=== PATIENT | female | born 2000 | race Caucasian/White ===

== ENCOUNTER 2024-08-31 09:01 | Outpatient (AMB) | payer OTHER, SELFPAY ==
--- NOTE | 2024-08-31 09:14 | MHC.OFFWIV ---
Intake Vital Signs 08/31/24 09:18 Height 5 ft 4 in Weight 185 lb 6 oz BMI 31.8 BP 122/72 Blood Pressure Location Lt brachial Position Sitting Respiration 12 Pulse 82 Pulse Source Pulse Oximeter Pulse Oximetry (%) 98 Oxygen Delivery Method Room Air Intake Visit Reasons: Medication check Intake Note: Patient is here for control and patient is on her last pack now. Patient has Pcos Allergies No Known Allergies Allergy (Verified 08/31/24 09:29) Medication List - Last Reconciled 08/31/24 by Jen Salomon [facility] desogestrel-ethinyl estradiol 0.15-0.03 mg (Apri) 1 tab PO DAILY Do you need a note to return to daycare/school/sports/work: No HPI HPI Comments History of Present Illness Details History of Present Illness The patient is a 24-year-old female presenting with a need for control refill. She was previously managing her control needs through her primary care provider, but changes in her insurance status following her mother's job transition have led to administrative challenges. The patient is currently using Apri as her contraceptive method and has emphasized the necessity of maintaining this medication due to her diagnosis of Polycystic Ovary Syndrome (PCOS). She notes the importance of the control in managing symptoms associated with her PCOS and wishes to ensure there is no disruption in her medication supply. She also reports experiencing anxiety attacks, predominantly when driving. Her previous healthcare provider prescribed Lorazepam (Ativan) for this issue, which she has used sparingly, primarily during flights to manage fear of flying. The patient prefers to cope with anxiety without regular medication to avoid dependency and concerns about missing doses leading to disruptions. Her mother, a healthcare professional, is supportive, but the patient mentions experiencing anxiety attacks that make her feel detached, emilee to feeling high. She has expressed interest in an effective as-needed medication for situational anxiety without inducing significant sedation or altered sensorium. Physical Exam General: Cooperative, healthy appearing, comfortable, no acute distress and well developed Respiratory: Normal respiratory effort and able to speak in complete sentences. Clear to auscultation bilaterally Cardiovascular: Regular rate and rhythm. Normal S1 and S2 Neuro: Patient oriented x3 Psych Mood and affect appropriate Plan - For Polycystic Ovary Syndrome PCOS) and contraception management: A three-month prescription of Apri with two refills has been provided to ensure continuity of control. Efforts will be made to establish care with an EMERGENCY ROOM SPECIALIST at the [facility] group for comprehensive management of PCOS and routine women's health screenings. - For anxiety management: Hydroxyzine has been prescribed as an as-needed medication for anxiety episodes, particularly useful when the patient experiences anxiety while driving. The patient is advised to start with half a tablet to assess effectiveness and side effects. - For nicotine use via vaping: Although it presents risks, particularly with concurrent control usage, the patient is advised to reduce or eliminate nicotine vaping to mitigate thromboembolic risk associated with oral contraceptive use. - Follow-Up: The patient should follow up with an appointment scheduled with Dr. Champion, or inquire about an earlier opening to discuss ongoing care, especially regarding anxiety management. Additionally, the patient will receive a referral for EMERGENCY ROOM SPECIALIST services, and it's recommended that she utilize the patient portal for tracking appointments and health records. Patient was informed and verbally consented to the use of an ambient scribe for clinic note documentation during this visit. Physical Exam Vital Signs: Last Vital Signs Pulse 82 08/31/24 09:18 Resp 12 08/31/24 09:18 BP 122/72 08/31/24 09:18 Pulse Ox 98 08/31/24 09:18 Oxygen Delivery Method Room Air 08/31/24 09:18 BMI result Body Mass Index 31.8 Assessment & Plan Assessment & Plan (1) PCOS (polycystic ovarian syndrome): Code(s): E28.2 - Polycystic ovarian syndrome (2) EULALIO (generalized anxiety disorder): Code(s): F41.1 - Generalized anxiety disorder Plan . Orders: Referrals EMERGENCY ROOM SPECIALIST Referral E28.2 - Polycystic ovarian syndrome, Z12.4 - Encounter for screening for malignant neoplasm of cervix Medications: New desogestrel-ethinyl estradiol 0.15-0.03 mg (Apri) 1 tab PO DAILY 84 tabs 2RF hydroxyzine HCl TAKE 1/2 TO 1 TAB TID PRN ANXIETY 25 mg PO TID PRN 90 tabs 0RF ANXIETY Patient Instructions: Walk-In Care (Urgent Care): We Make it Easy Walk-in for urgent medical issues such as: ? Seasonal Allergies ? Insect Bites ? Cough ? Diarrhea ? Acute Asthma Attacks ? Back, Knee or Joint Pain ? Ear Infection ? Fever without a Rash ? Headaches ? Nausea ? [place] Eye, Rash or Skin Irritation ? Sore Throat ? Sports Physicals ? Vomiting Most insurances are accepted. Patients do not need to be part of the [facility] to seek care at the walk-in clinic. Locations [facility] [place] [address] [address] ? [phone] [facility] Walk-In Care in [place] provides services to ages 18 and over. Open Friday-Friday: 8 a.m. to 5 p.m. and Friday: 9 a.m. to 3 p.m.* *Hours may vary due to staffing availability. To confirm Walk-In Care hours in [place], please call [phone]. [address] [place] [address] ? [phone] [facility] Walk-In Care in [place] provides services to ages 12 and over. Open Friday-Friday: 8 a.m. to 5 p.m. Hours may vary due to staffing availability. To confirm Walk-In Care hours in [place], please call [phone]. LABORATORY SERVICES: [facility] ? Primary Location [address] [place] [address] Friday through Friday 6:00 AM ? 5:00 PM Friday 7:00 AM ? 11:00 AM* [phone] The [facility] is centrally located near the front entrance of the [facility] for easy outpatient access. Convenient parking is provided for outpatients. *Hours may vary due to staffing availability. To confirm Laboratory hours for any location, please call [phone]. Offsite Location For your convenience, we offer offsite laboratory draw stations at the following locations: [address] [place] [address] ? [facility] [address], [address] Friday through Friday 7:30 AM ? 1:00 PM* [phone] *Hours may vary due to staffing availability. To confirm Laboratory hours for any location, please call [phone]. [place] ? [address] Friday through Friday 6:00 AM ? 3:30 PM* Friday 6:30 AM ? 3 PM* [phone] *Hours may vary due to staffing availability. To confirm Laboratory hours for any location, please call [phone]. [facility] Friday through Friday 7:30 AM ? 4:00 PM* [phone] *Hours may vary due to staffing availability. To confirm Laboratory hours for any location, please call [phone]. [address] [facility] Friday through 9:00 AM ? 4:00 PM* *Hours may vary due to staffing availability. To confirm Laboratory hours for any location, please call [phone]. Appointments are not necessary. Walk-ins are welcome. Like all the departments throughout the [facility], our Lab undergoes frequent reviews to ensure the quality and accuracy of test results, and our staff takes special pride in its status as a nationally accredited facility. Patient Portal: ONE PATIENT. ONE RECORD. BETTER CARE. [facility] has a fully integrated, cutting-edge mobile electronic health information system that has revolutionized the way we care for our patients and manage our organization. This system improves communication and coordination enabling us to provide safe, higher-quality care, and an overall positive experience for staff and patients. Our first priority, as always, is to deliver the highest quality care possible. The system is running in the background supporting that priority. This portal is for all [facility] services and practices. If you are experiencing any technical difficulties with enrolling or logging into the Patient Portal please complete the [facility] Patient Portal Technical Support Form. [facility] now offers a new secure on-line interactive tool for patients to review their health information ? Patient Portal. This interactive web portal will enable patients and their families to take an active role in their care by providing easy, secure access to their health information via the internet. The Patient Portal provides patients with instant access to their health information, including laboratory results, medications, allergies, demographic information, visit history, and more. In addition to managing their own care, parents and health care proxies with authorized consent will appreciate the ability to access the records of those individuals for whom they provide care. Please note: if you wish to gain access (Proxy) to another patient?s portal, you will be required to come to the Medical Records Department in person at [facility]. Both the patient giving proxy access and the proxy will need to provide photo identification and complete the appropriate authorization. The Patient Portal also allows track their appointments online. The [facility] Patient Portal also saves patients time by allowing them to submit updates to their demographic and contact information prior to their visits. Portal email notifications will also alert patients to any new activity on their portal, such as test results and new appointments. In order to initially enroll in the [facility] Patient Portal, you will need to enter some required information including the following: ? your [facility] Medical Record number ? your personal home email address ? name ? date of Please note: In order to enroll in the [facility] Patient Portal, we need to have your email address on file in your electronic medical record. The email address needs to be specific for one person (yourself) in order for your Portal enrollment to be successful. You can update your email address in person with our Registration staff when you are registering for a hospital visit. Otherwise, you will need to come to the Health Information Management (Medical Records) Department at [facility]. We are open from Friday ? Friday from 7:30 a.m. ? 4:30 p.m. You will be required to present a photo id. Once you have successfully enrolled in the Patient Portal, you will receive a one-time user id and password for the Portal, sent to your email address. This will allow you to log into the Patient Portal within 99 hrs and reset your own logon id and password, and define personal security questions. Once your permanent login and password have been set, you can log into the [facility] Patient Portal at any time via the blue button above or from the Portal Logon button on any page of the [facility] website. [facility] encourage all of our patients to enroll in Patient Portal as it presents a valuable opportunity for patients and their families to actively participate in their care and stay healthy Welcome to [facility]. We look forward to working with you. Coding Level of Care Code Est Pt Level 4 (04804) Diagnoses PCOS (polycystic ovarian syndrome) E28.2 EULALIO (generalized anxiety disorder) F41.1
[2024-08-31 09:18] VITALS: BP 122/72; PULSE 82; RESP 12; O2SAT 98; BMI 31.8
== END 2024-08-31 09:37 | disposition home or self-care (01) ==
PROVIDERS: Visit Provider Nurse Practitioner Family
DX: E28.2 Polycystic ovarian syndrome (principal); F41.1 Generalized anxiety disorder

== ENCOUNTER → 2024-08-31 09:01 | Outpatient (BNVA) | payer OTHER, SELFPAY | DX: E28.2 Polycystic ovarian syndrome (principal); F41.1 Generalized anxiety disorder | CPT/HCPCS: 99212 ==

== ENCOUNTER 2024-09-20 09:59 | Outpatient (AMB) | payer OTHER, SELFPAY ==
--- NOTE | 2024-09-20 10:07 | A.OFFPC_ITS ---
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: Patient has dentist HPI 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 ?? Prior PCP:?Flower Humphrey Last office visit/CPE:? > 1 yr Acute issue(s):? 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 1. Little interest or pleasure in doing things: several days 2. Feeling down, depressed, or hopeless: not at all 3. Trouble falling or staying asleep, or sleeping too much: not at all 4. Feeling tired or having little energy: several days 5. Poor appetite or overeating: not at all 6. Feeling bad about yourself - or that you are a failure or have let yourself or your family down: not at all 7. Trouble concentrating on things, such as reading the newspaper or watching television: not at all 8. Moving or speaking so slowly that other people could have noticed. Or the opposite - being so fidgety or restless that you have been moving around a lot more than usual: not at all 9. Thoughts that you would be better off or of hurting yourself in some way: not at all Total score: 2 Depression Screening Interpretation: Negative Depression Screening Done: Yes 48151 - PHQ-9 Billing: Yes Source: Developed by Drs. Nolan Hutchins, Nancie Cox, Odilon Cornejo and colleagues, with an educational caitlin from [employer]. Thrive Questionnaire Date Thrive assessed: 09/20/24 I am a: Patient What is your living situation today?: I have a steady place to live Within the past 12 months, did the food you bought not last and you didn't have the money to get more?: Never true Within the past 12 months, did you worry whether your food would run out before you got money to buy more?: Never true Do you have trouble paying for medicines?: No Do you have trouble getting transportation to medical appointments?: No Do you have trouble paying your heating and electricity bill?: No Do you have trouble taking care of your child, family member or friend?: No Do you have trouble with day-to-day activities such as bathing, preparing meals, shopping, managing finances, etc.?: No Are you currently unemployed and looking for a job?: No Are you interested in more education?: No Please select the resources that you would like help with: None Currently or been in a relationship where the following occur: No concerns reported THRIVE Score: 0 AUDIT C Alcohol Use Questionnaire (AUDIT-C) 1. How often do you have a drink containing alcohol?: Monthly or less 2. How many drinks containing alcohol do you have on a typical day when you are drinking?: 1 or 2 3. How often do you have six or more drinks on one occasion?: Never Total Score: 1 EULALIO-7 AMB Questionnaire EULALIO-7 Date EULALIO - 7 assessed: 09/20/24 Feeling nervous, anxious, or on edge: 2 = More than half the days Not being able to stop or control worryin = Several days Worrying too much about different things: 1 = Several days Trouble relaxin = Several days Being so restless that it is hard to sit still: 0 = Not at all Becoming easily annoyed or irritable: 1 = Several days Feeling afraid as if something awful might happen: 2 = More than half the days Total EULALIO-7 score (0-4 normal; 5-9 mild; 10-14 moderate; 15-21 severe): 8 Source: Developed by Drs. Nolan Hutchins, Nancie Cox, Odilon Cornejo and colleagues, with an educational caitlin from [employer]. EULALIO-7 Assessment Billing EULALIO-7 Assessment Tool: EULALIO-7 Assessment 69348 Review of Systems Const Denies chills, Denies fatigue, Denies fever(s), Denies headache(s) and Denies weakness ENT Denies dizziness and Denies headache(s) Card Denies chest pain, Denies lightheadedness, Denies dyspnea and Denies other (Palpitations) Resp Denies cough, Denies dyspnea, Denies wheezing and Denies other ( shortness of breath) Musc Denies numbness and Denies tingling Neuro Denies dizziness, Denies headache(s), Denies numbness, Denies tingling, Denies paresthesias and Denies weakness Psych Reports anxiety and Denies depression Endo Denies fatigue Aller/Immun Denies wheezing Physical exam (Primary Care) Vital Signs: Last Vital Signs Temp 98.4 F 09/20/24 10:16 Pulse 84 09/20/24 10:16 Resp 14 09/20/24 10:16 BP 100/60 09/20/24 10:16 BMI result Body Mass Index 31.5 Tobacco/Smoking Status: Tobacco use Status Tobacco use date assessed 09/20/24 09/20/24 10:21 Patient Tobacco Use Status Never used Tobacco 09/20/24 10:21 e-Cigarette/Vaping Use Currently Using 09/20/24 10:21 PHQ-9: PHQ-9 Score PHQ-9: Total score 2 09/20/24 10:27 Depression Screening Interpretation: Negative Thrive Assessment: Date of Thrive Assessment Date Thrive assessed 09/20/24 09/20/24 10:21 Currently or been in a relationship where the following occur: No concerns reported Const General: no acute distress and well developed Nutritional Appearance: well nourished Orientation/consciousness: patient oriented x3 HENMT Head: Yes normocephalic and Yes atraumatic Eyes General: appearance normal, both eyes and all related structures Pupils: Equal, round and reactive pupils present EOM: EOMs intact bilaterally Resp Effort & Inspection: normal respiratory effort Auscultation: clear to auscultation bilaterally Cardio Rate: regular rate Rhythm: regular rhythm Heart sounds: S1 normal heart sound present, S2 normal heart sound present, no gallops, no murmurs and no rubs Neuro General: patient oriented x3 and gait normal Cranial nerves: Yes Equal, round and reactive pupils present Psych Affect: normal affect Coding Level of Care Code New Pt Level 3 (24367) Diagnoses EULALIO (generalized anxiety disorder) F41.1 PCOS (polycystic ovarian syndrome) E28.2 Laboratory exam ordered as part of routine general medical examination Z00.00 Additional Codes EULALIO-7 Assessment Billing - EULALIO-7 Assessment Tool: EULALIO-7 Assessment 49274 ([id number]) PHQ-9 - 79421 - PHQ-9 Billing: Yes ([id number]) Assessment & Plan Assessment & Plan (1) EULALIO (generalized anxiety disorder): Code(s): F41.1 - Generalized anxiety disorder Category: Medical Plan: We?discussed?1st?and?2nd?line?medications?for?anxiety Patient?has?tried?hydroxyzine?few?times?which?seem?to?help?slightly I?think?she?would?be?a?good?candidate?for?a?therapist?ask?nurse?navigator?to?judha e?a?referral We?also?discussed?first-line?medications?such?SSRI?medications. She?will?think?about?this. Also?encouraged?regular?exercise (2) PCOS (polycystic ovarian syndrome): Code(s): E28.2 - Polycystic ovarian syndrome Category: Medical Plan: Has?appointment?with?top distribution executive (3) Laboratory exam ordered as part of routine general medical examination: Code(s): Z00.00 - Encounter for general adult medical examination without abnormal findi ngs Category: Medical Plan: Check?labs Orders: Orders Complete Blood Count Auto Diff Today Z00.00 - Encounter for general adult medical examination without abnormal findings Lipid Panel Today Z00.00 - Encounter for general adult medical examination without abnormal findings Microalbumin, Random (w Creat) Today I10 - Essential (primary) hypertension UA and rflx microscopic Today Z00.00 - Encounter for general adult medical examination without abnormal findings Comprehensive [place]. Panel Fast Today Z00.00 - Encounter for general adult medical examination without abnormal findings TSH reflex Free T4 Today Z00.00 - Encounter for general adult medical exami [place] [facility] without abnormal findings Referrals Nurse Navigator Referral F41.1 - Generalized anxiety disorder
[2024-09-20 10:16] VITALS: BP 100/60; PULSE 84; RESP 14; TEMP 36.9; BMI 31.5
== END 2024-09-20 10:59 | disposition home or self-care (01) ==
PROVIDERS: Visit Provider Family Medicine
DX: F41.1 Generalized anxiety disorder (principal); E28.2 Polycystic ovarian syndrome; Z00.00 Encounter for general adult medical examination without abnormal findings

== ENCOUNTER → 2024-09-20 09:59 | Outpatient (BNVA) | payer OTHER, SELFPAY | PROVIDERS: Visit Provider Family Medicine | DX: Z00.00 Encounter for general adult medical examination without abnormal findings (principal); F41.1 Generalized anxiety disorder; E28.2 Polycystic ovarian syndrome | CPT/HCPCS: 96127; 99202 ==

== ENCOUNTER 2024-09-21 08:57 | Outpatient (REF) | payer OTHER, SELFPAY ==
[2024-09-21 11:25] LABS: MANUAL DIFF FLAG NO
[2024-09-21 11:31] LABS: Basophils Absolute Auto 0.1 X10*3/uL (0.0-0.2); Eosinophils Absolute Auto 0.2 X10*3/uL (0.0-0.4); Hematocrit 40.3 % (37.0-47.0); Hemoglobin 13.3 g/dl (12.0-16.0); Imm Gran Abs Auto 0.03 X10*3/uL (0.00-0.03); Imm Gran Pct Auto 0.3 % (0.0-0.4); Lymphocytes Absolute Auto 3.3 X10*3/uL (1.2-4.9); Lymphocytes Percent Auto 33.5 % (20-40); Mean Corpuscular Volume 81.9 fL (80.0-98.0); Mean Platelet Volume 10.5 fL (9.4-12.3); Monocytes Absolute Auto 0.4 X10*3/uL (0.1-1.2); Monocytes Percent Auto 4.5 % (2-11); Neutrophils Absolute Auto 5.7 x10*3/uL (2.0-8.3); Neutrophils Percent Auto 58.7 % (45-73); Platelet Count 354 X10*3/uL (160-400); Red Blood Count 4.92 X10*6/uL (4.20-5.50); Red Cell Distribution Width 13.5 % (11.0-16.0); White Blood Count 9.7 X10*3/uL (4.8-10.8)
[2024-09-21 12:18] LABS: Alanine Aminotransferase 17 U/L (0-31); Albumin Level 3.9 g/dL (3.5-5.0); Alkaline Phosphatase 51 U/L (39-117); Anion Gap 10 (12-20); Aspartate Amino Transferase 17 U/L (5-31); Bilirubin Total 0.3 mg/dL (0.0-1.0); Blood Urea Nitrogen 14 mg/dL (9-16); Calcium 9.2 mg/dL (8.4-10.2); Carbon Dioxide 22 mmol/L (22-29); Chloride 110 mmol/L (96-108); Cholesterol 190 mg/dL (<200); Estimated Glomerular Filt Rate > 60; Glucose Fasting 91 mg/dL (60-99); HDL Cholesterol 42 mg/dL (>40); LDL Cholesterol Calculated 118 mg/dL (<100); Potassium 4.4 mmol/L (3.3-5.1); Sodium 138 mmol/L (135-145); TSH reflex Free T4 1.93 uIU/mL (0.32-4.0); Total Protein 7.3 g/dL (6.5-8.0); Triglycerides 151 mg/dL (<150)
[2024-09-21 15:22] LABS: Appearance Urine Clear; Color Urine Yellow; Glucose Urine UA Negative (Negative); Leukocyte Esterase Urine Trace (Negative); Nitrite Urine Negative (Negative); PH 5.5 (5.0-9.0); UMIC TRIGGER UA YES; Urine Blood Negative (Negative); Urine Ketones Negative (Negative); Urine Protein Negative (Neg-Trace)
[2024-09-21 15:34] LABS: Bacteria Urine 2+ (None Seen); Hyaline Casts Urine 0-2 /LPF (0-2); RBC Urine 0-2 /HPF (0-2); WBC Urine 0-5 /HPF (0-5)
[2024-09-21 15:42] LABS: Creatinine Urine 178.55 mg/dL
== END 2024-09-21 08:58 | disposition home or self-care (01) ==
LOC: HO.WFDLDS 08:57
PROVIDERS: Visit Provider Family Medicine
DX: Z00.00 Encounter for general adult medical examination without abnormal findings (principal); I10 Essential (primary) hypertension
CPT/HCPCS: 36415; 80053; 80061; 81001; 82043; 82570; 84443; 85025

== ENCOUNTER 2024-11-16 08:33 | Outpatient (REF) | payer OTHER, SELFPAY ==
[2024-11-17 11:49] LABS: CT PCR NOT DETECTED (Not Detect.); NG PCR NOT DETECTED (Not Detect.)
[2024-11-17 13:48] LABS: Bacterial Vaginosis PCR NEGATIVE (Negative); Candida Group PCR NOT DETECTED (Not Detect); Candida glab krusei PCR NOT DETECTED (Not Detect); Trichomonas vaginalis PCR NOT DETECTED (Not Detect)
== END 2024-11-16 08:34 | disposition home or self-care (01) ==
LOC: HO.LAB 08:33
PROVIDERS: Visit Provider Advanced Practice Midwife
DX: Z01.419 Encounter for gynecological examination (general) (routine) without abnormal findings (principal); Z20.2 Contact with and (suspected) exposure to infections with a predominantly sexual mode of transmission; Z11.3 Encounter for screening for infections with a predominantly sexual mode of transmission
CPT/HCPCS: 81515; 87491; 87591; 99385; 99459

== ENCOUNTER 2024-11-16 08:33 | Outpatient (AMB) | payer OTHER, SELFPAY ==
--- NOTE | 2024-11-16 08:34 | A.OFFVIS_ITS ---
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 Doing well with stars coordinator concerns: history of irregular menses (skips a few months), menstrual cramps, facial acne, excessive arm hair, no facial or chest hair. She reports never had labs or US. Placed on OCP's for cycle control and BC. Regular monthly menses. Currently is not sexually active. She denies vaginal itching and irritation. STI screening offered; she accepts. She declines blood work screening. She denies any contraindications to control such as: migraines with aura, history of DVT or pulmonary emboli, high blood pressure, liver disease, thrombolic disorders, Lupus, +ARCENIO, breast cancer, or smoking. She tries to eat healthy and stays active with exercise. Denies family history of breast, ovarian or colon cancer. 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 Current occupational exposures/hazards: No Sexual orientation: Straight/Heterosexual Gender identity: Female Cognitive needs: No Hearing needs: No Vision needs: No Female Reproductive History Menstrual Duration of menses: 3-5 days Date of last menstrual period: 11/05/24 control method: pills Total pregnancies: 0 Review of Systems Const All systems reviewed & are unremarkable except as noted in HPI and below Reports as per HPI Eyes Reports no additional complaints ENT Reports no additional complaints Card Reports no additional complaints Resp Reports no additional complaints GI Reports as per HPI and Reports no additional complaints Reports as per HPI Musc Reports no additional complaints Skin/Breast Reports as per HPI Neuro Reports no additional complaints Psych Reports no additional complaints Endo Reports no additional complaints Bharathi/Lymph Reports no additional complaints Aller/Immun Reports no additional complaints Physical Exam Vital Signs: Last Vital Signs BP 124/80 11/16/24 08:35 BMI result Body Mass Index 32.1 Const General: cooperative, healthy appearing, no acute distress, well developed and alert Orientation/consciousness: patient oriented x3 HEENT Head: Yes normal to inspection Eyes General: appearance normal, both eyes and all related structures Neck Neck: Yes normal visual inspection Thyroid: Thyroid normal Chest Chest palpation & inspection: normal inspection of the chest and other (no puckering, dimpling, peau de orange, retraction, discharge, masses) Breast/axilla inspection: normal inspection of the breasts Breast/axilla palpation: normal palpation of the breasts Resp Effort & Inspection: normal respiratory effort GI Inspection: Yes normal to inspection Palpation (GI): Soft to palpation Rectal Exam - Female: deferred General: Yes bladder normal to palpation External Female Exam: normal external appearance and normal appearance of the urethra Speculum Exam - Vagina: normal appearance of the vagina, normal palpation and normal vaginal discharge Speculum Exam - Cervix: normal appearance of the cervix and normal palpation Bimanual exam- vagina & uterus: normal bimanual exam, normal palpation, uterine size normal, bladder normal to palpation, normal palpation and non-tender Bimanual Exam- Adnexa, other: no masses Skin General skin exam: no rashes or lesions noted Rashes: no rashes Neuro General: patient oriented x3 Cognition (Neuro): normal cognition Extrem General: Yes normal to inspection Psych Attitude: cooperative Thought process: Normal thought process present Assessment & Plan Assessment & Plan (1) Encounter for well woman exam with routine gynecological exam: Code(s): Z01.419 - Encounter for gynecological examination (general) (routine) without abnormal findings Category: Medical Plan Discussed: Current recommendations for pap smears per ASCCP guidelines. Breast awareness and periodic breast exams. Maintain a healthy lifestyle including a well balanced diet and routine exercise. Use condoms for STI and prevention. PCOS workup to include labs and ultrasound, and to stay off OCPs for a period of time to get accurate hormone level. Patient prefers to defer this plan and will speak with her mom before proceeding. I advised her just reach out through the patient portal let me know if she wants to proceed. control hormone use warnings: go to ER if and loss of vision, blindness, severe headache, chest pain or difficulty breathing, severe abdominal pain, or any pain or swelling in an extremity. Patient verbalizes understanding and agrees to the plan of care. She was given opportunity to ask questions and all questions were answered to the best of my ability. RTO in one year for annual stars coordinator examination. This note is constructed using voice recognition software. While every effort has been made to ensure accuracy, physical chemistry professor errors may have been included. Orders: Orders Bacterial Vaginosis Panel Today Z20.2 - Contact with and (suspected) exposure to infections with a predominantly sexual mode of transmission CT NG by PCR Today Z20.2 - Contact with and (suspected) exposure to infections with a predominantly sexual mode of transmission Pap Smear Today Z01.419 - Encounter for gynecological examination (general) (routine) without abnormal findings Medications: Refilled desogestrel-ethinyl estradiol 0.15-0.03 mg (Apri) 1 tab PO DAILY 84 tabs 4RF Coding Level of Care Code New Pt Prev Care 18-39yr([id number] Diagnoses Encounter for well woman exam with routine gynecological exam Z01.419
[2024-11-16 08:35] VITALS: BP 124/80; BMI 32.1
== END 2024-11-16 09:19 | disposition home or self-care (01) ==
PROVIDERS: Visit Provider Advanced Practice Midwife
DX: Z01.419 Encounter for gynecological examination (general) (routine) without abnormal findings (principal)
CPT/HCPCS: 99385; 99459

== ENCOUNTER 2024-11-16 09:04 | Outpatient (REF) | payer OTHER, SELFPAY | END 2024-11-16 09:05 | disposition home or self-care (01) | LOC: HO.LNP 09:04 | PROVIDERS: Visit Provider Advanced Practice Midwife | DX: Z01.419 Encounter for gynecological examination (general) (routine) without abnormal findings (principal) | CPT/HCPCS: 88175 ==

== ENCOUNTER 2024-11-25 09:13 | Outpatient (AMB) | payer OTHER, SELFPAY ==
--- NOTE | 2024-11-25 09:16 | A.OFFPC_ITS ---
Vital Signs 11/25/24 09:20 Height 5 ft 4 in Weight 188 lb BMI 32.3 BP 122/70 Blood Pressure Location Rt brachial Position Sitting Respiration 12 Pulse 82 Pulse Source Pulse Oximeter Temp 97.2 F Temp Source Oral Pulse Oximetry (%) 98 Oxygen Delivery Method Room Air Intake Visit Reasons: CPE with f/u [facility] maint. 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 Required: No Allergies No Known Allergies Allergy (Verified 11/25/24 09:46) Medication List - Last Reconciled 11/25/24 by Jen Salomon, [facility] desogestrel-ethinyl estradiol 0.15-0.03 mg (Apri) 1 tab PO DAILY hydroxyzine HCl 12.5 - 25 mg (0.5 - 1 x 25 mg) PO TID Tobacco use date assessed: 11/25/24 Dental Screening Dental Screen Date: 11/25/24 Did you have a dental visit in the last 12 months?: Yes Did you have a dental problem in the last 6 months where you did not have access to dental care?: No Was dental information given to patient?: Patient has dentist HPI HPI Comments History of Present Illness Details 24 y/o F with PCOS, EULALIO, Nicotine Vape u se, obesity, boderline HLD, Venous insuff Surgery: tonsillectomy 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 pGF CVD Health Maintenance Tdap [address] 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 She has a history of Polycystic Ovary Syndrome (PCOS), Generalized Anxiety Disorder (EULALIO), and nicotine dependence from vaping. - She reports mild anxiety with a score of 6 and manages this with hydroxyzine sparingly - She experiences left eye discomfort, s quinting, and suspects binocular vision disorder. A previous examination noted a 0.5 diopter change in her left eye. Thinks vision issues directly relate to her anxiety. Wants to be screened for binocular vision disorder. - She was advised to pause control to reassess her PCOS diagnosis, expressing concern about heavy menstrual flow without it. Active w [facility] - Nicotine vaping continues, though she desires to quit, facing challenges with substitutes causing heartburn. Review of Systems - Eye: Reports left eye squinting and di scomfort - Musculoskeletal: Reports legs falling asleep and occasional heaviness in one leg - right. Some veins present. Worse w prolonged sitting and standing. Physical Exam General: Well developed, well nourished, in no acute distress. Appears stated age. Head: Normocephalic, atraumatic. Eyes: Pupils are equal, round and reactive to light and accommodation. Conjunctivae are clear. Vision grossly normal Ears: TMs clear AU, EACS WNL Nose: Patent, without discharge. Neck: Supple, no adenopathy or thyromegaly. Breast: Edu on SBE Lungs: Clear to auscultation bilaterally. No rales, rhonchi or wheeze noted. Go od air flow in all banks. Heart: Regular rate and rhythm. No murmurs, click, rubs or gallops are noted. Abdomen: Bowel sounds present in all quadrants. The abdomen is soft, nontender, with no masses or organomegaly noted. No hernias are noted. : Deferred. Reviewed recommendations for routine [facility] Pulses: Peripheral pulses are equal and palpable bilaterally. Extremities: No clubbing, cyanosis nor edema is noted + spider veins, and varicose veins bilat worse on R Neurologic: Gait and station normal. Cranial Nerves 2-12 intact. Motor strength grossly symmetrical and intact. No sensory loss. Balance normal. Skin: No rashes, ulcers, or lesions noted. Turgor is good. Skin color is good. Hair and nails are without abnormalities. Psych: Normal eye contact, affect and mood appropriate, and normal interactions. Patient is alert and appropriate to context. Discussion Notes I discussed with the patient the management of her anxiety, which she reports as mild and currently managed with hydroxyzine. We discussed the potential influence of her eyesight on her anxiety and I have made a referral to an eye care provider to assess for binocular vision disorder. The patient expressed a desire to quit nicotine vaping, and we discussed possible interventions such as nicotine gum and patches. We also reviewed the necessity of pausing control to reassess PCOS, understanding her concerns regarding menstrual symptoms without it - managed by [facility]. Compression stockings were recommended to address symptoms of venous insufficiency, with follow-up should symptoms persist or worsen. Assessment and Plan 1. Polycystic Ovary Syndrome: - Patient advised to stop control temporarily for thorough re-evaluation. FU with ep technologist 2. Generalized Anxiety Disorder: - Monitor with current hydroxyzine usage ; investigate eye issues as contributing factors. 3. Nicotine dependence: - Discussed strategies for cessation, in cluding nicotine replacement options. 4. Potential binocular vision disorder: - Referred to store receiving specialist for compreh ensive testing and management. 5. Vascular symptoms in legs: - Compression stockings advised to asses s improvement; further vascular evaluation if needed. Patient Instructions - Temporarily stop control for patricia luation of PCOS. - Follow-up on referral to eye specialis t for potential binocular vision disorder. - Consider using nicotine gum or patches to aid in quitting vaping. - Consider purchasing and wearing compre ssion stockings for leg symptoms. - Return for further evaluation if sympt oms persist or worsen. RTO 1 year CPE sooner PRN Consent Consent was obtained from the patient for a referral to an eye long term care pharmacist to evaluate for binocular vision disorder. I discussed with her the potential risks and benefits, as well as the possibility of [id number] expenses if insurance does not cover the testing. The patient expressed understanding and agreed to the plan. Patient was informed and verbally consented to the use of an ambient scribe for clinic note documentation during this visit. 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 1. Little interest or pleasure in doing things: not at all 2. Feeling down, depressed, or hopeless: several days 3. Trouble falling or staying asleep, or sleeping too much: not at all 4. Feeling tired or having little energy: several days 5. Poor appetite or overeating: not at all 6. Feeling bad about yourself - or that you are a failure or have let yourself or your family down: not at all 7. Trouble concentrating on things, such as reading the newspaper or watching television: not at all 8. Moving or speaking so slowly that other people could have noticed. Or the opposite - being so fidgety or restless that you have been moving around a lot more than usual: not at all 9. Thoughts that you would be better off or of hurting yourself in some way: not at all Total score: 2 Depression Screening Interpretation: Negative Depression Screening Done: Yes 82274 - PHQ-9 Billing: Yes Source: Developed by Drs. Nolan Hutchnis, Nancie Cox, Odilon Cornejo and colleagues, with an educational caitlin from [employer]. Thrive Questionnaire Date Thrive assessed: 11/25/24 I am a: Patient What is your living situation today?: I have a steady place to live Within the past 12 months, did the food you bought not last and you didn't have the money to get more?: Never true Within the past 12 months, did you worry whether your food would run out before you got money to buy more?: Never true Do you have trouble paying for medicines?: No Do you have trouble getting transportation to medical appointments?: No Do you have trouble paying your heating and electricity bill?: No Do you have trouble taking care of your child, family member or friend?: No Do you have trouble with day-to-day activities such as bathing, preparing meals, shopping, managing finances, etc.?: No Are you currently unemployed and looking for a job?: No Are you interested in more education?: No Please select the resources that you would like help with: None Currently or been in a relationship where the following occur: No concerns rep orted THRIVE Score: 0 AUDIT C Alcohol Use Questionnaire (AUDIT-C) 1. How often do you have a drink containing alcohol?: Monthly or less 2. How many drinks containing alcohol do you have on a typical day when you are drinking?: 1 or 2 3. How often do you have six or more drinks on one occasion?: Never Total Score: 1 EULALIO-7 AMB Questionnaire EULALIO-7 Date EULALIO - 7 assessed: 11/25/24 Feeling nervous, anxious, or on edge: 1 = Several days Not being able to stop or control worryin = Several days Worrying too much about different things: 1 = Several days Trouble relaxin = Several days Being so restless that it is hard to sit still: 0 = Not at all Becoming easily annoyed or irritable: 1 = Several days Feeling afraid as if something awful might happen: 1 = Several days Total EULALIO-7 score (0-4 normal; 5-9 mild; 10-14 moderate; 15-21 severe): 6 Source: Developed by Drs. Nolan Hutchins, Nancie Cox, Odilon Cornejo and colleagues, with an educational caitlin from [employer]. EULALIO-7 Assessment Billing EULALIO-7 Assessment Tool: EULALIO-7 Assessment 90921 Physical exam (Primary Care) Vital Signs: Last Vital Signs Temp 97.2 F 11/25/24 09:20 Pulse 82 11/25/24 09:20 Resp 12 11/25/24 09:20 BP 122/70 11/25/24 09:20 Pulse Ox 98 11/25/24 09:20 Oxygen Delivery Method Room Air 11/25/24 09:20 BMI result Body Mass Index 32.3 BMI Assessment/Plan discussion: High BMI High, discussed plan: lifestyle Tobacco/Smoking Status: Tobacco use Status Tobacco use date assessed 11/25/24 11/25/24 09:21 Patient Tobacco Use Status Never used Tobacco 11/25/24 09:17 e-Cigarette/Vaping Use Currently Using 11/25/24 09:17 Are you ready to quit: Yes Tobacco cessation counseling provided: Yes Items discussed: Nicotine replacement, QuitWorks and Other Relapse Prevention: discussed the importance of a supportive environment, discussed extending NRT, discussed negative mood or depression after quitting, weight gain after smoking is common and discussed dietary, exercise and/or lifestyle changes Number of minutes spent counselin CPT code: 45805 - 4-10 Minutes PHQ-9: PHQ-9 Score PHQ-9: Total score 2 11/25/24 09:17 Depression Screening Interpretation: Negative Thrive Assessment: Date of Thrive Assessment Date Thrive assessed 11/25/24 11/25/24 09:17 Currently or been in a relationship where the following occur: No concerns reported Coding Level of Care Code Est Pt Prev Care 18-39y(17133) Diagnoses Encounter for general adult medical examination without abnormal findings Z00.00 EULALIO (generalized anxiety disorder) F41.1 PCOS (polycystic ovarian syndrome) E28.2 BMI 32.0-32.9,adult Z68.32 Class 1 obesity due to excess calories without serious comorbidity with body mass index (BMI) of 32.0 to 32.9 in adult E66.811; E66.09; Z68.32 Obesity type: due to excess calories Serious obesity comorbidity presence: without serious comorbidity Change in vision H53.9 Influenza vaccination declined Z28.21 Borderline high cholesterol E78.9 Vapes nicotine containing substance Z72.0 Venous insufficiency of both lower extremities I87.2 Additional Codes EULALIO-7 Assessment Billing - EULALIO-7 Assessment Tool: EULALIO-7 Assessment 14852 ([id number]) PHQ-9 - 42308 - PHQ-9 Billing: Yes ([id number]) Vital Signs *Quality* - CPT code: 52712 - 4-10 Minutes ([id number]) Assessment & Plan Assessment & Plan (1) Encounter for general adult medical examination without abnormal findings: Code(s): Z00.00 - Encounter for general adult medical examination without abnormal findings (2) EULALIO (generalized anxiety disorder): Code(s): F41.1 - Generalized anxiety disorder Category: Medical (3) PCOS (polycystic ovarian syndrome): Code(s): E28.2 - Polycystic ovarian syndrome Category: Medical (4) BMI 32.0-32.9,adult: Code(s): Z68.32 - Body mass index [BMI] 32.0-32.9, adult Category: Medical (5) Class 1 obesity with body mass index (BMI) of 32.0 to 32.9 in adult: Code(s): E66.811 - Obesity, class 1; Z68.32 - Body mass index [BMI] 32.0-32.9, adult Category: Medical Qualifiers: Obesity type: due to excess calories Serious obesity comorbidity presence: without serious comorbidity Qualified Code(s): E66.811 - Obesity, class 1; E66.09 - Other obesity due to excess calories; Z68.32 - Body mass index [BMI] 32.0-32.9, adult (6) Change in vision: Code(s): H53.9 - Unspecified visual disturbance Category: Medical (7) Influenza vaccination declined: Code(s): Z28.21 - Immunization not carried out because of patient refusal Category: Medical (8) Borderline high cholesterol: Code(s): E78.9 - Disorder of lipoprotein metabolism, unspecified Category: Medical (9) Vapes nicotine containing substance: Code(s): Z72.0 - Tobacco use Category: Social Hx (10) Venous insufficiency of both lower extremities: Code(s): I87.2 - Venous insufficiency (chronic) (peripheral) Category: Medical Plan . Orders: Referrals Optometry Referral H53.9 - Unspecified visual disturbance Patient Instructions: [email or web address] Smoking Cessation How to Quit There are a lot of ways to quit smoking and many resources to help you. Family members, friends, and co-workers may be supportive or encouraging, but to be successful the desire and commitment to quit must be your own. Most people who have been able to successfully quit smoking made at least one unsuccessful attempt in the past. Try not to view past attempts to quit as failures, but rather as learning experiences. Stopping smoking or using smokeless tobacco is difficult, but anyone can do it. Know the symptoms to expect when you stop. Common symptoms include: ? An intense craving for nicotine ? Anxiety, tension, restlessness, frustration, or impatience ? Difficulty concentrating ? Drowsiness or trouble sleeping, as well as bad dreams and nightmares ? Drowsiness and trouble sleeping ? Headaches ? Increased appetite and weight gain ? Irritability or depression How severe your symptoms are depends on how long you smoked and how many cigarettes you smoked each day. Feel ready to quit? ? First and foremost, set a quit date and quit completely on that day. Before your quit date, you may begin reducing your cigarette use. But remember, there is no safe level of cigarette smoking. ? List the reasons why you want to quit. Include both short- and long-term benefits. ? Identify the times you are most likely to smoke. For example, do you tend to smoke when feeling stressed or down? When out at night with friends? While drinking coffee or alcohol? When bored? While driving? Right after a meal or sex? During a work break? While watching TV or playing cards? When you are with other smokers? ? Let all of your friends, family, and co-workers know of your plan to stop smoking and your quit date. Just being aware that they know what you're going through can be helpful, especially when you are grumpy. ? Get rid of all your cigarettes just before the quit date, and clean out anything that smells like smoke, such as clothes and furniture. Make a plan about what you will do instead of smoking at those times when you are most likely to smoke. ? Be as specific as possible. For example, drink tea instead of coffee -- tea may not trigger the desire for a cigarette. Or, take a walk when you feel stressed. ? Remove ashtrays and cigarettes from the car. Place pretzels or hard candies there instead. Pretend-smoke with a straw. ? Find activities that focus your hands and mind but are not taxing or fattening. Computer games, solitaire, knitting, sewing, and crossword puzzles may help. ? If you normally smoke after eating, find other ways to end a meal. Play a tape or CD, eat a piece of fruit, get up and make a phone call, or take a walk (a good distraction that also rankin calories). Make other changes in your lifestyle. ? Change your daily schedule and habits. Eat at different times or eat several small meals instead of three large ones. Sit in a different chair or even a different room. ? Satisfy your oral habits by eating celery or other low-calorie snack, chewing sugarless gum, or sucking on a cinnamon stick. ? Go to public places and restaurants where smoking is prohibited or restricted. ? Eat regular meals and don't eat too much candy or sweet things. ? Get more exercise. Take walks or ride a bike. Exercise helps relieve the urge to smoke. Set short-term quitting goals and reward yourself when you meet them. ? Every day, put the money you normally spend on cigarettes in a jar. Then buy something pleasurable after a period of time. ? Try not to think about all the days ahead you will need to avoid smoking. Take it one day at a time. ? Even one puff or one cigarette will make your desire for more cigarettes even stronger. However, it is normal to make mistakes. So even if you have one cigarette, you don't need to take the next one. Other tips to help you quit smoking and stick to it: ? Enroll in a smoking cessation program (hospitals, health departments, community centers, and work sites often offer programs). Learn about self-hypnosis or other techniques. ? Ask your health care provider about prescription medications that are safe and appropriate for you. ? Find out about nicotine patches, gum, and sprays. The [place] [employer]'s web site -- www.cancer.org -- is an excellent resource for smokers who are trying to quit, and the [employer] [place] [employer] can help some smokers kick the habit. Above all, don't get discouraged if you aren't able to quit smoking the first time. Nicotine addiction is a hard habit to break. Try something different next time. Develop new strategies, and try again. Many people take several attempts to finally kick the habit. Health screenings for women You should visit your health care provider from time to time, even if you are healthy. The purpose of these visits is to: Screen for medical issues Assess your risk for future medical problems Encourage a healthy lifestyle Update vaccinations and other preventive care services Help you get to know your provider in case of an illness Information Even if you feel fine, you should still see your provider for regular checkups. These visits can help you avoid problems in the future. For example, the only way to find out if you have high blood pressure is to have it checked regularly. High blood sugar and high cholesterol levels also may not have any symptoms in the early stages. A simple blood test can check for these conditions. There are specific times when you should see your provider or receive specific health screenings. The [place] Preventive Services Task Force publishes a list of recommended screenings. Below are screening guidelines for women ages 18 to 39. BLOOD PRESSURE SCREENING Your blood pressure should be checked at least once every 3 to 5 years if: Your blood pressure is in the normal range (top number less than 120 mm Hg and bottom number less than 80 mm Hg) You don't have risk factors for high blood pressure Ask your provider if you need your blood pressure checked more often if: The top number is 120 to 129 mm Hg or the bottom number is 70 to 79 mm Hg You have diabetes, heart disease, kidney problems, are overweight, or have certain other health conditions You have a first-degree relative with high blood pressure You are Black You had high blood pressure during a If the top number is 130 mm Hg or greater or the bottom number is 80 mm Hg or greater, this is considered stage 1 hypertension. Schedule an appointment with your provider to learn how you can reduce your blood pressure. Watch for blood pressure screenings in your area. Ask your provider if you can stop in to have your blood pressure checked. BREAST CANCER SCREENING Experts do not agree about the benefits of breast self-exams in finding breast cancer or saving lives. Talk to your provider about what is best for you. A screening mammogram is not recommended for most women under age 40. Your provider may discuss and recommend mammograms, MRI scans, or ultrasounds if you have an increased risk for breast cancer, such as: A mother or sister who had breast cancer at a young age (most often starting screening earlier than the age the close relative was diagnosed) You carry a high-risk genetic marker CERVICAL CANCER SCREENING Cervical cancer screening should start at age 21 years unless your provider advises otherwise. After the first test: Women ages 21 through 29 should have a Pap test every 3 years. Exoprts do not agree on whether HPV testing is recommended for this age group. Women ages 30 through 65 should be screened with either a Pap test every 3 years or the HPV test every 5 years or both tests every 5 years (called cotesting ). Women who have been treated for precancer (cervical dysplasia) should continue to have Pap tests for 20 years after treatment or until age 65, whichever is longer. If you have had your uterus and cervix removed (total hysterectomy), and you have not been diagnosed with cervical cancer or precancer (high grade cervical neoplasia), you do not need cervical cancer screening. CHOLESTEROL SCREENING Cholesterol screening should begin at: Age 45 for women with no known risk factors for coronary heart disease Age 20 for women with known risk factors for coronary heart disease Repeat cholesterol screening should take place: Every 5 years for women with normal cholesterol levels More often if changes occur in lifestyle (including weight gain and diet) More often if you have diabetes, heart disease, kidney problems, or certain other conditions DIABETES SCREENING You should be screened for diabetes starting at age 35 and then repeated every 3 years if you have no risk factors for diabetes. Screening may need to start earlier and be repeated more often if you have other risk factors for diabetes, such as: You have a first degree relative with diabetes. You are overweight or have obesity. You have high blood pressure, prediabetes, or a history of heart disease. Screening for diabetes should be done if you are planning to become and you are overweight and have other risk factors such as high blood pressure. DENTAL EXAM Go to the dentist once or twice every year for an exam and cleaning. Your dentist will evaluate if you need more frequent visits. EYE EXAM Have an eye exam every 5 to 10 years before age 40. If you have vision problems, have an eye exam every 2 years or more often if recommended by your provider. You should have an eye exam that includes an examination of your retina (back of your eye) at least every year if you have diabetes. IMMUNIZATIONS Commonly needed vaccines include: Flu shot: get one every year. COVID-19 vaccine: ask your provider what is best for you. Tetanus-diphtheria and acellular pertussis (Tdap) vaccine: have one at or after age 19 as one of your tetanus-diphtheria vaccines if you did not receive it as an adolescent. Tetanus-diphtheria: have a booster (or Tdap) every 10 years. Varicella vaccine: receive 2 doses if you never had chickenpox or the varicella vaccine. Hepatitis B vaccine: receive 2, 3, or 4 doses, depending on your exact circumstances. Measles, mumps, and rubella (MMR) vaccine: receive 1 to 2 doses if you are not already immune to MMR. Your provider can tell you if you are immune. Ask your provider about the human papillomavirus (HPV) vaccine if: You have not received the HPV vaccine in the past You have not completed the full vaccine series (you should catch up on this shot) Ask your provider if you should receive other immunizations if you have certain health problems that increase your risk for some diseases such as pneumonia. INFECTIOUS DISEASE SCREENING Women who are sexually active should be screened for chlamydia and gonorrhea up until age 25. Women 25 years and older should be screened for chlamydia and gonorrhea if at high risk. Screening for hepatitis C: All adults ages 18 to 79 should get a one-time test for hepatitis C. people should be screened at every . Screening for human immunodeficiency virus (HIV): All people ages 15 to 65 should get a one-time test for HIV. Depending on your lifestyle and medical history, you may also need to be screened for infections such as syphilis and HIV, as well as other infections. PHYSICAL EXAM All adults should visit their provider from time to time, even if they are healthy. The purpose of these visits is to: Screen for disease Assess your risk of future medical problems Encourage a healthy lifestyle Update your vaccinations and other preventive care services Maintain a relationship with a provider in case of an illness Your height, weight, and BMI should be checked at every exam. During your exam, your provider may ask you about: Depression and anxiety Diet and exercise Alcohol and tobacco use Safety issues, such as using seat belts, smoke detectors, and intimate partner violence Your medicines and risk for interactions SKIN SELF-EXAM Your provider may check your skin for signs of skin cancer, especially if you're at high risk, such as if you: Have had skin cancer before Have close relatives with skin cancer Have a weakened immune system OTHER SCREENING Talk with your provider about colon cancer screening if you have a strong family history of colon cancer or polyps, or if you have had inflammatory bowel disease or polyps yourself. Routine bone density screening of women under 40 is not recommended.
[2024-11-25 09:20] VITALS: BP 122/70; PULSE 82; RESP 12; TEMP 36.2; O2SAT 98; BMI 32.3
== END 2024-11-25 10:07 | disposition home or self-care (01) ==
PROVIDERS: PCP Family Medicine; Visit Provider Nurse Practitioner Family
DX: Z00.00 Encounter for general adult medical examination without abnormal findings (principal); F41.1 Generalized anxiety disorder; E28.2 Polycystic ovarian syndrome; Z68.32 Body mass index [BMI] 32.0-32.9, adult; E66.811 Obesity, class 1; E66.09 Other obesity due to excess calories; H53.9 Unspecified visual disturbance; Z28.21 Immunization not carried out because of patient refusal; E78.9 Disorder of lipoprotein metabolism, unspecified; Z72.0 Tobacco use; I87.2 Venous insufficiency (chronic) (peripheral)

== ENCOUNTER → 2024-11-25 09:13 | Outpatient (BNVA) | payer OTHER, SELFPAY | PROVIDERS: PCP Family Medicine; Visit Provider Nurse Practitioner Family | DX: Z00.00 Encounter for general adult medical examination without abnormal findings (principal); F41.1 Generalized anxiety disorder; E28.2 Polycystic ovarian syndrome; E66.09 Other obesity due to excess calories; Z68.32 Body mass index [BMI] 32.0-32.9, adult; H53.9 Unspecified visual disturbance; E78.9 Disorder of lipoprotein metabolism, unspecified; I87.2 Venous insufficiency (chronic) (peripheral); Z72.0 Tobacco use | CPT/HCPCS: 96127; 99395 ==

== ENCOUNTER 2025-03-17 15:24 | Outpatient (AMB) | payer OTHER, SELFPAY ==
--- NOTE | 2025-03-17 16:30 | A.OFFPC_ITS ---
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 - Major fear of heights, particularly in planes. - Prior successful use of Ativan 0.5 mg for air travel. - Has a scheduled vacation involving fou r flight segments, requiring medication for anxiety. Going to [place] with family in Apr Review of Systems - Psychiatric: Reports fear of heights, especially during air travel. Denies other significant psychiatric symptoms. - Neurological: Denies dizziness, vertig o. - Respiratory: Denies shortness of breat h. - Gastrointestinal: Denies nausea or vom iting. Assessment and Plan 1. Anxiety Disorder - Prescribed Ativan 0.5 mg, six tablets for anxiety management during travel. - Advised on timing and sedation effects . - Emphasized hydration and avoidance of premature dosing. Telehealth Attestation This visit was conducted via telehealth, and the documentation accurately reflects the encounter. The patient has been explained that this is an interactive (audio/video) telehealth encounter and what that consists of. The patient understands and wishes to proceed. [employer] platform was used. Total time spent caring for the patient today was 15 minutes. This includes time spent before the visit reviewing the chart, time spent during the visit, and time spent after the visit on documentation, reviewing laboratory results, diagnostic imaging, medications, performing a medically necessary evaluation, counseling on diagnoses, care coordination, ordering appropriate tests, ordering appropriate medications, review of tests performed by other providers, reporting test results with the patient, communication with other healthcare providers. 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 Current occupational exposures/hazards: No Sexual orientation: Straight/Heterosexual Gender identity: Female Cognitive needs: No Hearing needs: No Vision needs: No Questionnaire Thrive Questionnaire Date Thrive assessed: 11/18/24 I am a: Patient What is your living situation today?: I have a steady place to live Within the past 12 months, did the food you bought not last and you didn't have the money to get more?: Never true Within the past 12 months, did you worry whether your food would run out before you got money to buy more?: Never true Do you have trouble paying for medicines?: No Do you have trouble getting transportation to medical appointments?: No Do you have trouble paying your heating and electricity bill?: No Do you have trouble taking care of your child, family member or friend?: No Do you have trouble with day-to-day activities such as bathing, preparing meals, shopping, managing finances, etc.?: No Are you currently unemployed and looking for a job?: No Are you interested in more education?: No Please select the resources that you would like help with: None Currently or been in a relationship where the following occur: No concerns reported THRIVE Score: 0 EULALIO-7 AMB Questionnaire EULALIO-7 Date EULALIO - 7 assessed: 11/25/24 Source: Developed by Drs. Nolan Hutchins, Nancie Cox, Odilon Cornejo and colleagues, with an educational caitlin from [employer]. Physical exam (Primary Care) Tobacco/Smoking Status: Tobacco use Status Tobacco use date assessed 11/25/24 11/25/24 09:21 Patient Tobacco Use Status Never used Tobacco 11/25/24 09:17 e-Cigarette/Vaping Use Currently Using 11/25/24 09:17 Thrive Assessment: Date of Thrive Assessment Date Thrive assessed 11/18/24 03/17/25 06:22 Currently or been in a relationship where the following occur: No concerns reported Telehealth Telehealth Telehealth Platform: [employer] Location of provider rendering services: practice address Location of patient: address on file Patient Identification confirmed using: Name, : Yes Telehealth method: voice only Patient verbally consented to treatment: Yes Patient verbally consented to billing insurance company: Yes Patient informed of any privacy concerns related to visit: Yes Minutes spent on Phone/Video with Pt.: 7 Coding Level of Care Code Tele Est Pt Level 3 (10326) Complex EM visit Add On G2211 Diagnoses Fear of flying F40.243 Assessment & Plan Assessment & Plan (1) Fear of flying: Code(s): F40.243 - Fear of flying Plan . Medications: New lorazepam (Ativan) 0.5 mg PO BID PRN 6 tabs 0RF anxiety
== END 2025-03-17 16:40 | disposition home or self-care (01) ==
LOC: HO.HMCFM 15:24
PROVIDERS: PCP Family Medicine; Visit Provider Nurse Practitioner Family
DX: F40.243 Fear of flying (principal)

== ENCOUNTER → 2025-03-17 15:24 | Outpatient (BNVA) | payer OTHER, SELFPAY | PROVIDERS: PCP Family Medicine; Visit Provider Nurse Practitioner Family | DX: Z13.89 Encounter for screening for other disorder (principal) ==